=== PATIENT | male | born 1990 | race Caucasian/White ===

== ENCOUNTER 2021-04-06 15:29 | Emergency (ER) | payer MEDICAID, OTHER ==
[2021-04-06] MEDS ORDERED: Sodium Chloride 0.9% 1,000 ML IV ONE (15:57)
[2021-04-06] MEDS ORDERED: Ketorolac 15 MG/ML SDV IVPUSH ONE (15:57)
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
[2021-04-06 16:25] LABS: BLOOD UREA NITROGEN,BUN 17 mg/dL (7.0-18.0); CARBON DIOXIDE,CO2 24.5 mmol/L (21.0-32.0); CHLORIDE,CL 105 mmol/L (98-107); GLUCOSE RANDOM 91 mg/dL (74-106); POTASSIUM,K 3.6 mmol/L (3.5-5.1); SODIUM,NA 143 mmol/L (136-148)
--- NOTE | 2021-04-06 17:14 | CT ---
INDICATION: Right abdominal pain. Possible calculus. COMPARISON: None available TECHNIQUE: CT examination of the abdomen and pelvis was performed without contrast enhancement using 2.5 mm thick axial sections from the lung bases through the pubic symphysis. Oral contrast was not administered. Please note that all CT scans at this facility use dose modulation, iterative reconstruction, and/or weight-based dosing when appropriate to reduce radiation dose to as low as reasonably achievable. FINDINGS: In the abdomen, in the unenhanced liver there is a 2.4 centimeter diameter low density region in the medial segment of the left lobe of the liver adjacent to the falciform ligament, consistent with a hemangioma or focal fatty infiltration. This is a common incidental finding and requires no further followup. The spleen, pancreas, and adrenals are normal in appearance. The unenhanced kidneys are normal in appearance. The gallbladder is normal in appearance. The abdominal aorta is normal in caliber with no sign of dilatation. There is no sign of retroperitoneal mass or adenopathy. The stomach, loops of small bowel, and colon in the abdomen are normal in appearance. In the pelvis, the appendix is nonvisualized, but there is no sign of an inflammatory process in the area of the appendix. Surgical clips are seen in the area of the appendix consistent with previous appendectomy. The loops of small bowel and colon in the pelvis are normal in appearance. The prostate is normal in appearance. The urinary bladder is normal in appearance. There is no sign of pelvic or inguinal mass or adenopathy. There is no sign of free air or free fluid in the abdomen or pelvis. The lung bases are clear. The osseous structures are normal in appearance for the patient`s age. IMPRESSION: Nothing seen to explain the patient`s right abdominal pain. No sign of urinary system calculi or obstruction. Status post appendectomy with no sign of any inflammatory process in the right lower quadrant. Normal appearance of the gallbladder. Incidental note is made of a hemangioma or focal fat in the left lobe of the liver adjacent to the falciform ligament, requiring no further follow-up. Normal CT of the pelvis without contrast. Please note that all CT scans at this facility use dose modulation, iterative reconstruction, and/or weight-based dosing when appropriate to reduce radiation dose to as low as reasonably achievable. Dictated by Bill Yuen MD @ 04/06/2021 5:14:[address] Bill Yuen @ Apr 06 2021 5:14PM
== END 2021-04-06 18:31 | disposition home or self-care (01) ==
LOC: MW.ED 15:29
DX: N23 Unspecified renal colic (principal); Z87.891 Personal history of nicotine dependence; Z90.49 Acquired absence of other specified parts of digestive tract
CPT/HCPCS: 36415; 74176; 80053; 81001; 85025; 96374; 99284; J1885; J7030